=== PATIENT | male | born 1990 | race Caucasian/White ===

== ENCOUNTER 2016-09-08 16:49 | Emergency (ER) | payer SELFPAY ==
[2016-09-08 17:02] VITALS: BP 150/68
--- NOTE | 2016-09-08 17:17 | UC ---
Back Pain HPI - HPI Summary HPI Summary: LOWER BACK PAIN X 3 DAYS , NO KNOWN INJURY , NO RADIATION OF PAIN , INCREASE PAIN WITH MOVEMENT, NO NUMBNESS ON LOWER LEG +RASH RIGHT HAND X 1 DAY , ITCHY , BURNING - History of Current Complaint Chief Complaint: UCSkin Stated Complaint: SKIN ISSUE RT HAND/LOW BACK PAIN Time Seen by Provider: 09/08/16 17:04 Hx Obtained From: Patient Onset/Duration: Gradual Onset, Lasting Days - 3, Still Present Timing: Constant Severity Initially: Moderate Severity Currently: Moderate Back Pain: Is Discrete @ - LEFT LOWER BACK Character: Aching Aggravating: Movement, Lifting, Bending, Walking Associated Signs And Symptoms: Negative: Swelling, Redness, Bruising, Fever, Weakness, Numbness, Tingling, Abdominal Pain, Flank Pain, Bladder Incontinence, Bowel Incontinence, Weight Loss, Pain with Weight Bearing - Allergies/Home Medications Allergies/Adverse Reactions: Allergies Allergy/AdvReac Type Severity Reaction Status Date / Time No Known Allergies Allergy Verified 09/08/16 17:02 PMH/Surg Hx/FS Hx/Imm Hx Psychological History Of: Reports: Depression - NO MEDS - Surgical History Surgical History: Yes Surgery Procedure, Year, and Place: Left [place]le [place] [facility] [place]GUINAL HERNIA REPAIR. EAR TUBES Other Surgical History: left ankle surgery - Family History Known Family History: Positive: Cardiac Disease - mother Negative: Hypertension, Diabetes - Social History Alcohol Use: Rare Substance Use Type: None Smoking Status (MU): Light Every Day Tobacco Smoker Type: Cigarettes Amount Used/How Often: 4 cigarettes daily Length of Time of Smoking/Using Tobacco: 8 Years Have You Smoked in the Last Year: Yes When Did the Patient Quit Smoking/Using Tobacco: 06/13/2014 Household Exposure Type: Cigarettes - Immunization History Most Recent Influenza Vaccination: Not the Season Review of Systems Constitutional: Negative Skin: Rash Eyes: Negative ENT: Negative Respiratory: Negative All Other Systems Reviewed And Are Negative: Yes Physical Exam Triage Information Reviewed: Yes Appearance: Well-Appearing, No Pain Distress, Obese Vital Signs: Initial Vital Signs Temp 98.4 F 09/08/16 16:55 Pulse 78 09/08/16 16:55 Resp 16 09/08/16 16:55 BP 150/68 09/08/16 16:55 Pulse Ox 99 09/08/16 16:55 Eye Exam: Normal Eyes: Positive: Conjunctiva Clear ENT: Positive: Normal ENT inspection, Hearing grossly normal, Pharynx normal Neck exam: Normal Neck: Positive: Supple, Nontender, No Lymphadenopathy Respiratory: Positive: Chest non-tender, Lungs clear, Normal breath sounds, No respiratory distress Cardiovascular: Positive: RRR, No Murmur, Pulses Normal Abdominal Exam: Normal Musculoskeletal: Positive: Other: - LEFT LOWER BACK : NO SWELLING, NO ERYTHEM , MILD TENDERNESS, PAIN WITH FLEXION AND EXTENSION Skin: Positive: rashes - MACULAR RASH RIGHT HAND , + ERYTHEMA, TENDERNESS, Back Pain Course/Dx - Differential Dx/Diagnosis Provider Diagnoses: CONTACT DERMATITIS RIGHT HAND. LOWER BACK STRAIN Discharge - Discharge Plan Condition: Stable Disposition: HOME Prescriptions: Cyclobenzaprine TAB* [Flexeril 10 MG TAB*] 10 mg PO BID #20 tab Naproxen [Naproxen 500 MG TABS] 500 mg PO BID #20 tab Triamcinolone 0.1% CREAM (NF) [Kenalog 0.1% Cream (NF)] 1 applic .SEE ORDER BID #30 gm Patient Education Materials: Contact Dermatitis (ED), Low Back Strain (ED) Referrals: Shukri Sandoval MD [Primary Care Provider] - 7 Days
== END 2016-09-08 17:33 | disposition home or self-care (01) ==
LOC: UCCORT 16:49
DX: S39.012A Strain of muscle, fascia and tendon of lower back, initial encounter (principal); X58.XXXA Exposure to other specified factors, initial encounter; Y93.9 Activity, unspecified; Y92.9 Unspecified place or not applicable; L25.9 Unspecified contact dermatitis, unspecified cause; F32.9 Major depressive disorder, single episode, unspecified; E66.9 Obesity, unspecified; Z87.891 Personal history of nicotine dependence
CPT/HCPCS: 99212; G0463

== ENCOUNTER 2016-09-17 15:36 | Emergency (ER) | payer SELFPAY ==
--- NOTE | 2016-09-17 16:20 | UC ---
Back Pain HPI - HPI Summary HPI Summary: The patient comes in today for: 1. Lower left back pain: Onset: 2 weeks. Palliative/provocative: Nothing makes the pain better or worse except driving makes it worse. Quality: Throbbing. Region: Lower left back. Severity: 7/10 Time: Constant. Associated symptoms: Injury: None. He got up from bed and the "back was out." Bowel/bladder dysfunction: None. Numbness/weakness: "left leg keeps trying to give out." Fevers: None known. But, he states that the back feels "hot." Unexpected weight loss: None. Previous treatment: He took a 500 mg pill of Naproxen anid it barely affected it. Previous evaluation: None. Radiation of pain: Down the left leg. No previous problems. *. - History of Current Complaint Chief Complaint: UCBackPain Stated Complaint: SEVERE BACK PAIN Time Seen by Provider: 09/17/16 16:15 Hx Obtained From: Patient - Allergies/Home Medications Allergies/Adverse Reactions: Allergies Allergy/AdvReac Type Severity Reaction Status Date / Time No Known Allergies Allergy Verified 09/17/16 16:02 PMH/Surg Hx/FS Hx/Imm Hx Previously Healthy: No Endocrine History Of: Denies: Diabetes, Thyroid Disease, Hyperthyroidism, Hypothyroidism, Dyslipidemia Cardiovascular History Of: Denies: Cardiac Disorders, Hypertension, Pacemaker/ICD, Myocardial Infarction , Congestive Heart Failure, Atrial Fibrillation, Deep Vein Thrombosis, Bleeding Disorders Respiratory History Of: Denies: COPD, Asthma, Bronchitis, Pneumonia, Pulmonary Embolism GI/ History Of: Reports: Gastroesophageal Reflux - He does not take anything for it at this time. Denies: Ulcer, Gastrointestinal Bleed, Gall Bladder Disease, Kidney Stones, Diverticulitis, Renal Disease, Urosepsis Neurological History Of: Denies: TIA, CVA, Dementia, Seizures, Migraine Psychological History Of: Reports: Anxiety, Depression - NO MEDS Denies: Bipolar Disorder, Schizophrenia, Post Traumatic Stress Disorder Cancer History Of: Reports: Cervical Cancer Denies: Lung Cancer, Colorectal Cancer, Breast Cancer, Prostate Cancer Other History Of: Negative For: HIV, Hepatitis B, Hepatitis C, Anticoagulant Therapy - Surgical History Surgical History: Yes Surgery Procedure, Year, and Place: Left Ankle Screws (Osteoarthritis), 2015, [facility] – [place]; INGUINAL HERNIA REPAIR. EAR TUBES Other Surgical History: left ankle surgery - Family History Known Family History: Positive: Cardiac Disease - mother Negative: Hypertension, Diabetes - Social History Alcohol Use: Rare Substance Use Type: None Smoking Status (MU): Light Every Day Tobacco Smoker Type: Cigarettes Amount Used/How Often: 4 cigarettes daily Length of Time of Smoking/Using Tobacco: 8 Years Have You Smoked in the Last Year: Yes When Did the Patient Quit Smoking/Using Tobacco: 06/13/2014 Household Exposure Type: Cigarettes - Immunization History Most Recent Influenza Vaccination: Not the Season Review of Systems Constitutional: Negative Skin: Negative Eyes: Negative ENT: Negative Respiratory: Negative Cardiovascular: Negative Gastrointestinal: Negative All Other Systems Reviewed And Are Negative: Yes Physical Exam Triage Information Reviewed: Yes Appearance: Well-Appearing, No Pain Distress - But, he has slow movement (but he had a heavy body habitus) and some guarding. He will push himself out of a chair., Well-Nourished Vital Signs: Initial Vital Signs Temp 98.3 F 09/17/16 15:58 Pulse 63 09/17/16 15:58 Resp 16 09/17/16 15:58 BP 111/57 09/17/16 15:58 Pulse Ox 93 09/17/16 15:58 Vital Signs Reviewed: Yes Eyes: Positive: Conjunctiva Clear. Negative: Discharge ENT: Positive: Hearing grossly normal. Negative: Pharyngeal erythema, Nasal congestion, Nasal drainage, TM bulging, TM dull, TM red, Tonsillar swelling, Tonsillar exudate Dental: Negative: Gross Decay/Caries @, Dental Fracture @ Neck: Positive: Supple, Nontender, No Lymphadenopathy. Negative: Nuchal Rigidity Respiratory: Positive: Lungs clear, No respiratory distress, No accessory muscle use. Negative: Crackles, Wheezing Cardiovascular: Positive: RRR, No Murmur Abdomen Description: Positive: Nontender, No Organomegaly, Soft, Other: - Exam hindered by. Negative: Distended, Guarding Bowel Sounds: Positive: Present Musculoskeletal: Positive: Strength Intact, No Edema, Other: - He has some slight scoliosis of the back. There is tenderness to palpation of the left lower paraspinous musculature--none on the right. No CVA tenderness. He has good forward flexion, and limited right lateral flexion--better on the left lateral flexion. He has SLR bilaterally, but he has almost full extension. DTR are 1+/2 for the patella. Neurological: Positive: Alert, Muscle Tone Normal Psychological: Positive: Age Appropriate Behavior, Consolable Skin: Negative: rashes, breakdown Re-Evaluation - Re-Evaluation First Eval Change: Improved - The patient feels better with the ketorolac injection. His physical exam shows easier and greater ROM movement. Back Pain Course/Dx - Differential Dx/Diagnosis Differential Diagnosis/HQI/PQRI: Strain, Sprain Provider Diagnoses: Lower left back strain. Discharge - Discharge Plan Condition: Stable Disposition: HOME Patient Education Materials: Low Back Strain (ED) Referrals: Non Staff,Doctor [Primary Care Provider] - 1 Week (Please see your primary care provider in about a week to see how well you are doing. If you don't have a primary care provider, please use the list provided. IF you get worse between now and then, you can come back to see us. )
[2016-09-17] MEDS ORDERED: Ketorolac INJ* 60 MG/2 ML VIAL IM ONE (16:39)
--- NOTE | 2016-09-17 17:23 | RAD ---
INDICATION: Low back pain. COMPARISON: Comparison is made with a prior x-ray study of the lumbar spine from October 02, 2008. TECHNIQUE: 5 views of the lumbar spine were obtained including lateral, oblique, AP and a coned-down lateral view of the lumbar sacral junction. FINDINGS: The vertebra are in normal alignment. No fracture is seen. There is mild to moderate degenerative disc disease at the L1-L2, L2-L3 and L3-L4 levels levels demonstrating progression from the prior study. IMPRESSION: MILD TO MODERATE DEGENERATIVE DISC DISEASE.
[2016-09-17 18:14] VITALS: BP 114/63
== END 2016-09-17 18:15 | disposition home or self-care (01) ==
LOC: UCCORT 15:36
DX: S39.012A Strain of muscle, fascia and tendon of lower back, initial encounter (principal); X58.XXXA Exposure to other specified factors, initial encounter; Y93.9 Activity, unspecified; Y92.9 Unspecified place or not applicable; M51.36 Other intervertebral disc degeneration, lumbar region; K21.9 Gastro-esophageal reflux disease without esophagitis; F17.210 Nicotine dependence, cigarettes, uncomplicated
CPT/HCPCS: 72110; 96372; 99212; G0463; J1885

== ENCOUNTER 2016-09-21 08:50 | Emergency (ER) | payer SELFPAY ==
--- NOTE | 2016-09-21 09:29 | UC ---
Back Pain HPI - HPI Summary HPI Summary: He states his back pain is still present but improved. He states he is here for work note to return to work. no new symptoms like worsening numbness or saddle anesthesia. - History of Current Complaint Stated Complaint: RE CHECK BACK PAIN Time Seen by Provider: 09/21/16 09:18 Hx Obtained From: Patient Onset/Duration: Gradual Onset Timing: Constant Severity Initially: Severe Severity Currently: Moderate Back Pain: Is Diffuse Character: Aching Aggravating: Movement Alleviating: Rest, Position Associated Signs And Symptoms: Negative: Fever, Bladder Incontinence, Bowel Incontinence - Allergies/Home Medications Allergies/Adverse Reactions: Allergies Allergy/AdvReac Type Severity Reaction Status Date / Time No Known Allergies Allergy Verified 09/17/16 16:02 PMH/Surg Hx/FS Hx/Imm Hx Endocrine History Of: Denies: Diabetes, Thyroid Disease, Hyperthyroidism, Hypothyroidism, Dyslipidemia Cardiovascular History Of: Denies: Cardiac Disorders, Hypertension, Pacemaker/ICD, Myocardial Infarction , Congestive Heart Failure, Atrial Fibrillation, Deep Vein Thrombosis, Bleeding Disorders Respiratory History Of: Denies: COPD, Asthma, Bronchitis, Pneumonia, Pulmonary Embolism GI/ History Of: Reports: Gastroesophageal Reflux - He does not take anything for it at this time. Denies: Ulcer, Gastrointestinal Bleed, Gall Bladder Disease, Kidney Stones, Diverticulitis, Renal Disease, Urosepsis Neurological History Of: Denies: TIA, CVA, Dementia, Seizures, Migraine Psychological History Of: Reports: Anxiety, Depression - NO MEDS Denies: Bipolar Disorder, Schizophrenia, Post Traumatic Stress Disorder Cancer History Of: Reports: Cervical Cancer Denies: Lung Cancer, Colorectal Cancer, Breast Cancer, Prostate Cancer Other History Of: Negative For: HIV, Hepatitis B, Hepatitis C, Anticoagulant Therapy - Surgical History Surgical History: Yes Surgery Procedure, Year, and Place: Left Ankle Screws (Osteoarthritis), 2015, [facility] – [place]; INGUINAL HERNIA REPAIR. EAR TUBES Other Surgical History: left ankle surgery - Family History Known Family History: Positive: Cardiac Disease - mother Negative: Hypertension, Diabetes - Social History Alcohol Use: Rare Substance Use Type: None Smoking Status (MU): Light Every Day Tobacco Smoker Type: Cigarettes Amount Used/How Often: 4 cigarettes daily Length of Time of Smoking/Using Tobacco: 8 Years Have You Smoked in the Last Year: Yes When Did the Patient Quit Smoking/Using Tobacco: 06/13/2014 Household Exposure Type: Cigarettes - Immunization History Most Recent Influenza Vaccination: Not the 2014/2015 Season Review of Systems All Other Systems Reviewed And Are Negative: Yes Physical Exam Triage Information Reviewed: Yes Appearance: Well-Appearing, Obese Vital Signs Reviewed: Yes Eye Exam: Normal Eyes: Positive: Conjunctiva Clear. Negative: Conjunctiva Inflamed ENT Exam: Normal Dental Exam: Normal Neck exam: Normal Respiratory Exam: Normal Cardiovascular Exam: Normal Abdomen Description: Positive: Nontender, Soft Musculoskeletal Exam: Other - arsh straight leg raise produces lower back pain without parasthesias. He walks into the room without major limp. Musculoskeletal: Positive: Strength Intact Neurological Exam: Normal Neurological: Positive: Alert, Muscle Tone Normal. Negative: Fatigued Psychological Exam: Normal Skin Exam: Normal Skin: Negative: rashes Back Pain Course/Dx - Differential Dx/Diagnosis Provider Diagnoses: work note. low back pain chronic. Discharge - Discharge Plan Condition: Good Disposition: HOME Patient Education Materials: Back Pain (ED), Lower Back Exercises (ED) Forms: *Work Release Referrals: Non Staff,Doctor [Primary Care Provider] -
[2016-09-21 09:40] VITALS: BP 118/69
== END 2016-09-21 09:41 | disposition home or self-care (01) ==
LOC: UCCORT 08:50
DX: M54.5 Low back pain (principal); K21.9 Gastro-esophageal reflux disease without esophagitis; F41.8 Other specified anxiety disorders; E66.9 Obesity, unspecified; Z87.891 Personal history of nicotine dependence
CPT/HCPCS: 99211; G0463

== ENCOUNTER 2016-09-25 13:58 | Emergency (ER) | payer SELFPAY ==
[2016-09-25 15:25] VITALS: BP 118/59
[2016-09-25] MEDS ORDERED: Ketorolac INJ* 30 MG/ML 1 ML VIAL IM ONE (15:37)
--- NOTE | 2016-09-25 15:43 | UC ---
Back Pain HPI - HPI Summary HPI Summary: patient is an obese 26 year old male who has been suffering with back pain for th elast 2 weeks, he has come to 4 times for the nikos e complaint, has been taking anti inflammatories with good relief, but has run out. he is slightly limited in flexion of the lumbar spine. has a job where he is on his feet all day and his back on the left side gets very sore and gets shooting pains down the leg. - History of Current Complaint Chief Complaint: UCBackPain Stated Complaint: BACK PAIN Time Seen by Provider: 09/25/16 15:27 Hx Obtained From: Patient Onset/Duration: Sudden Onset, Lasting Weeks Timing: Lasting Weeks Severity Initially: Moderate Severity Currently: Moderate Back Pain: Is Discrete @ - left Si joint Character: Dull, Aching, Spasmodic Aggravating: Movement, Walking Alleviating: Rest - Allergies/Home Medications Allergies/Adverse Reactions: Allergies Allergy/AdvReac Type Severity Reaction Status Date / Time No Known Allergies Allergy Verified 09/25/16 15:24 PMH/Surg Hx/FS Hx/Imm Hx Previously Healthy: Yes Endocrine History Of: Denies: Diabetes, Thyroid Disease, Hyperthyroidism, Hypothyroidism, Dyslipidemia Cardiovascular History Of: Denies: Cardiac Disorders, Hypertension, Pacemaker/ICD, Myocardial Infarction , Congestive Heart Failure, Atrial Fibrillation, Deep Vein Thrombosis, Bleeding Disorders Respiratory History Of: Denies: COPD, Asthma, Bronchitis, Pneumonia, Pulmonary Embolism GI/ History Of: Reports: Gastroesophageal Reflux - He does not take anything for it at this time. Denies: Ulcer, Gastrointestinal Bleed, Gall Bladder Disease, Kidney Stones, Diverticulitis, Renal Disease, Urosepsis Neurological History Of: Denies: TIA, CVA, Dementia, Seizures, Migraine Psychological History Of: Reports: Anxiety, Depression - NO MEDS Denies: Bipolar Disorder, Schizophrenia, Post Traumatic Stress Disorder Cancer History Of: Reports: Cervical Cancer Denies: Lung Cancer, Colorectal Cancer, Breast Cancer, Prostate Cancer Other History Of: Negative For: HIV, Hepatitis B, Hepatitis C, Anticoagulant Therapy - Surgical History Surgical History: Yes Surgery Procedure, Year, and Place: Left Ankle Screws (Osteoarthritis), 2015, [facility] – [place]; INGUINAL HERNIA REPAIR. EAR TUBES Other Surgical History: left ankle surgery - Family History Known Family History: Positive: Cardiac Disease - mother Negative: Hypertension, Diabetes - Social History Alcohol Use: Occasionally Substance Use Type: None Smoking Status (MU): Light Every Day Tobacco Smoker Type: Cigarettes Amount Used/How Often: 2-3 CIGS PER DAY Length of Time of Smoking/Using Tobacco: 8 Years Have You Smoked in the Last Year: Yes When Did the Patient Quit Smoking/Using Tobacco: 06/13/2014 Household Exposure Type: Cigarettes - Immunization History Most Recent Influenza Vaccination: none Review of Systems Constitutional: Negative Skin: Negative Eyes: Negative ENT: Negative Respiratory: Negative Cardiovascular: Negative Gastrointestinal: Negative Genitourinary: Negative Motor: Negative Neurovascular: Negative Musculoskeletal: Arthralgia, Decreased ROM, Myalgia Neurological: Negative Psychological: Negative All Other Systems Reviewed And Are Negative: Yes Physical Exam Triage Information Reviewed: Yes Appearance: Ill-Appearing, Pain Distress, Obese Vital Signs: Initial Vital Signs Temp 97.9 F 09/25/16 15:18 Pulse 94 09/25/16 15:18 Resp 18 09/25/16 15:18 BP 118/59 09/25/16 15:18 Pulse Ox 99 09/25/16 15:18 Vital Signs Reviewed: Yes Eye Exam: Normal Eyes: Positive: Conjunctiva Clear ENT Exam: Normal ENT: Positive: Hearing grossly normal, Pharynx normal, TMs normal Dental Exam: Normal Neck exam: Normal Neck: Positive: Supple, Nontender, No Lymphadenopathy Respiratory Exam: Normal Respiratory: Positive: Chest non-tender, Lungs clear, Normal breath sounds Cardiovascular Exam: Normal Cardiovascular: Positive: RRR, No Murmur, Pulses Normal Abdominal Exam: Normal Abdomen Description: Positive: Nontender, No Organomegaly, Soft Bowel Sounds: Positive: Present Musculoskeletal: Positive: Strength Intact, No Edema, ROM Limited @ - left lateral flexion Neurological Exam: Normal Neurological: Positive: Alert, Muscle Tone Normal Psychological Exam: Normal Skin Exam: Normal Back Pain Course/Dx - Course Course Of Treatment: hx obtained, exam performed, meds reviewed, ROM limited in left lat FLX cannot reprodue the shooting pain. no spinal tenderness with palpation. all pain is centere over the left SI joint and QL. - Differential Dx/Diagnosis Differential Diagnosis/HQI/PQRI: Arthritis, Herniated Disc, Strain, Sprain Provider Diagnoses: SI joint dysfunction. low back pain. morbid obesity Discharge - Discharge Plan Condition: Stable Disposition: HOME Prescriptions: Naproxen [Naproxen 500 MG TABS] 500 mg PO BID #60 tab Patient Education Materials: Sacroiliitis (ED), Lower Back Exercises (ED) Forms: *Work Release Referrals: Non Staff,Doctor [Primary Care Provider] - Chevy Penny [Physical Therapist] - Additional Instructions: 1. take the naproxen twice a day 2. start the stretching and low back exercises to relieve the cause of the pain 3. I have included a referral for PT that I believe is necessary for full healing of your back
== END 2016-09-25 16:18 | disposition home or self-care (01) ==
LOC: UCCORT 13:58
DX: M53.3 Sacrococcygeal disorders, not elsewhere classified (principal); M54.5 Low back pain; E66.01 Morbid (severe) obesity due to excess calories; K21.9 Gastro-esophageal reflux disease without esophagitis; F17.210 Nicotine dependence, cigarettes, uncomplicated
CPT/HCPCS: 96372; 99212; G0463; J1885

== ENCOUNTER 2016-10-11 15:43 | Emergency (ER) | payer SELFPAY ==
[2016-10-11 16:00] VITALS: BP 140/71
--- NOTE | 2016-10-11 16:51 | RAD ---
INDICATION: Hemoptysis. COMPARISON: There are no prior studies available for comparison. TECHNIQUE: Dual-energy PA and lateral views of the chest were obtained. FINDINGS: The heart is within normal limits in size. Mediastinal and hilar contours appear within normal limits. The lungs are clear. No pleural effusion is present. IMPRESSION: NO EVIDENCE FOR ACTIVE CARDIOPULMONARY DISEASE.
--- NOTE | 2016-10-11 17:29 | UC ---
Throat Pain/[place] HPI - HPI Summary HPI Summary: SORE THROAT AND COUGH SINCE . FEVER 100F. THIS MORNING CONCERNED THAT THERE MAY HAVE BEEN SOME BLOOD IN SPUTUM WITH COUGHING. - History of Current Complaint Chief Complaint: UCGeneralIllness Stated Complaint: SORE THROAT,COUGH Time Seen by Provider: 10/11/16 15:59 Hx Obtained From: Patient Onset/Duration: Gradual Onset, Lasting Days, Still Present, Worse Since - THIS MORNING Severity: Mild Pain Intensity: 0 Pain Scale Used: 0-10 Numeric Cough: Productive Associated Signs & Symptoms: Positive: Hoarseness, Fever - Epiglottits Risk Factors Epiglottis Risk Factors: Negative - Allergies/Home Medications Allergies/Adverse Reactions: Allergies Allergy/AdvReac Type Severity Reaction Status Date / Time No Known Allergies Allergy Verified 10/11/16 16:00 Home Medications: Home Medications Cyclobenzaprine TAB* [Flexeril 10 MG TAB*] 10 mg PO DAILY 10/11/16 [History Confirmed 10/11/16] PMH/Surg Hx/FS Hx/Imm Hx Previously Healthy: Yes Endocrine History Of: Denies: Diabetes, Thyroid Disease, Hyperthyroidism, Hypothyroidism, Dyslipidemia Cardiovascular History Of: Denies: Cardiac Disorders, Hypertension, Pacemaker/ICD, Myocardial Infarction , Congestive Heart Failure, Atrial Fibrillation, Deep Vein Thrombosis, Bleeding Disorders Respiratory History Of: Denies: COPD, Asthma, Bronchitis, Pneumonia, Pulmonary Embolism GI/ History Of: Reports: Gastroesophageal Reflux - He does not take anything for it at this time. Denies: Ulcer, Gastrointestinal Bleed, Gall Bladder Disease, Kidney Stones, Diverticulitis, Renal Disease, Urosepsis Neurological History Of: Denies: TIA, CVA, Dementia, Seizures, Migraine Psychological History Of: Reports: Anxiety, Depression - NO MEDS Denies: Bipolar Disorder, Schizophrenia, Post Traumatic Stress Disorder Cancer History Of: Reports: Cervical Cancer Denies: Lung Cancer, Colorectal Cancer, Breast Cancer, Prostate Cancer Other History Of: Negative For: HIV, Hepatitis B, Hepatitis C, Anticoagulant Therapy - Surgical History Surgical History: Yes Surgery Procedure, Year, and Place: Left Ankle Screws (Osteoarthritis), 2015, [facility] – [place]; INGUINAL HERNIA REPAIR. EAR TUBES Other Surgical History: left ankle surgery - Family History Known Family History: Positive: Cardiac Disease - mother Negative: Hypertension, Diabetes - Social History Occupation: Employed Full-time Lives: With Family Alcohol Use: Rare Substance Use Type: None Smoking Status (MU): Light Every Day Tobacco Smoker Type: Cigarettes Amount Used/How Often: 2-3 CIGS PER DAY Length of Time of Smoking/Using Tobacco: 8 Years Have You Smoked in the Last Year: Yes When Did the Patient Quit Smoking/Using Tobacco: 06/13/2014 Household Exposure Type: Cigarettes Cessation Counseling: Patient Advised to Stop - Immunization History Most Recent Influenza Vaccination: none Review of Systems Constitutional: Fever Skin: Negative Eyes: Negative ENT: Sore Throat Respiratory: Cough Cardiovascular: Negative Gastrointestinal: Negative Genitourinary: Negative Motor: Negative Neurovascular: Negative Musculoskeletal: Negative Neurological: Negative Psychological: Negative All Other Systems Reviewed And Are Negative: Yes Physical Exam Triage Information Reviewed: Yes Appearance: Well-Appearing, No Pain Distress, Well-Nourished, Obese Vital Signs: Initial Vital Signs Temp 100.3 F 10/11/16 15:46 Pulse 104 10/11/16 15:46 Resp 20 10/11/16 15:46 BP 140/71 10/11/16 15:46 Pulse Ox 98 10/11/16 15:46 Vital Signs Reviewed: Yes Eye Exam: Normal ENT Exam: Normal ENT: Positive: Normal ENT inspection, Hearing grossly normal, Pharyngeal erythema, TMs normal Dental Exam: Normal Neck exam: Normal Neck: Positive: Supple, Nontender, No Lymphadenopathy Respiratory Exam: Normal Respiratory: Positive: Chest non-tender, Lungs clear, Normal breath sounds, No respiratory distress, No accessory muscle use Cardiovascular Exam: Normal Cardiovascular: Positive: RRR, No Murmur, Pulses Normal, Brisk Capillary Refill Abdominal Exam: Normal Musculoskeletal Exam: Normal Musculoskeletal: Positive: Strength Intact, ROM Intact Neurological Exam: Normal Psychological Exam: Normal Skin Exam: Normal Throat Pain/Nasal Course/Dx - Differential Dx/Diagnosis Differential Diagnosis/HQI/PQRI: Otitis Media, Pharyngitis, Sinusitis, Tonsillitis, URI Provider Diagnoses: UPPER RESPIRATORY INFECTION Discharge - Discharge Plan Condition: Stable Disposition: HOME Prescriptions: Benzonatate CAP* [Tessalon 100 MG CAP*] 100 mg PO TID PRN #15 cap PRN Reason: Cough Patient Education Materials: Pharyngitis (ED), Upper Respiratory Infection (ED) Referrals: [facility] [place] PHYSICIAN REFERRAL [Outside] Non Staff,Doctor [Primary Care Provider] -
== END 2016-10-11 17:23 | disposition home or self-care (01) ==
LOC: UCCORT 15:43
DX: J06.9 Acute upper respiratory infection, unspecified (principal); K21.9 Gastro-esophageal reflux disease without esophagitis; F41.8 Other specified anxiety disorders; E66.9 Obesity, unspecified; F17.210 Nicotine dependence, cigarettes, uncomplicated
CPT/HCPCS: 71020; 87651; 99212; G0463

== ENCOUNTER 2018-07-05 12:45 | Emergency (ER) | payer SELFPAY ==
[2018-07-05 13:23] VITALS: BP 143/83
--- NOTE | 2018-07-05 14:07 | UC ---
Back Pain HPI - HPI Summary HPI Summary: Ptc/o left knee and low back pain . Pt reports that on 06/20/18 pt slipped on ice and fell on buttocks and low back. Pt reports that righ knee went out in fron to him and left knee "got all twisted up". Pt was seen at [facility] and had Xray of left knee hip and pelvis. Pt was given Naproxen RX and wa referred to PT, and PCP for follow up and treatment. Pt did not not do as recommended. - History of Current Complaint Chief Complaint: UCLowerExtremity Stated Complaint: BACK/LEFT LEG PAIN Hx Obtained From: Patient Onset/Duration: Sudden Onset, Lasting Weeks, Still Present Timing: Constant Severity Initially: Severe Severity Currently: Severe Pain Intensity: 10 Back Pain: Is Discrete @ - left knee and low back Character: Dull, Aching, Spasmodic, Stiffness Aggravating Factor(s): Movement, Lifting, Bending, Walking Alleviating Factor(s): Rest, Position Associated Signs And Symptoms: Positive: Negative - Risk Factors AAA Risk Factors: Negative TAD Risk Factors: Negative Cauda Equina Risk Factors: Negative Epidural Abscess Risk Factors: Negative - Allergies/Home Medications Allergies/Adverse Reactions: Allergies Allergy/AdvReac Type Severity Reaction Status Date / Time No Known Allergies Allergy Verified 07/05/18 13:09 Home Medications: Home Medications Naproxen Sodium [Aleve] 440 mg PO ONCE PRN 07/05/18 [History Confirmed 07/05/18] PMH/Surg Hx/FS Hx/Imm Hx Previously Healthy: Yes Other History Of: Negative For: HIV, Hepatitis B, Hepatitis C, Anticoagulant Therapy - Surgical History Surgical History: Yes Surgery Procedure, Year, and Place: Left Ankle Screws (Osteoarthritis), 2015, [facility] [place]; INGUINAL HERNIA REPAIR. EAR TUBES Other Surgical History: left ankle surgery - Family History Known Family History: Positive: Cardiac Disease - mother Negative: Hypertension, Diabetes - Social History Occupation: Employed Full-time Lives: With Family Alcohol Use: Rare Substance Use Type: None Smoking Status (MU): Light Every Day Tobacco Smoker Type: Cigarettes Amount Used/How Often: 2-3 CIGS PER DAY Length of Time of Smoking/Using Tobacco: 8 Years Have You Smoked in the Last Year: No When Did the Patient Quit Smoking/Using Tobacco: 06/13/2014 Household Exposure Type: Cigarettes - Immunization History Most Recent Influenza Vaccination: none Review of Systems All Other Systems Reviewed And Are Negative: Yes Constitutional: Positive: Negative Skin: Positive: Negative Eyes: Positive: Negative ENT: Positive: Negative Respiratory: Positive: Negative Cardiovascular: Positive: Negative Gastrointestinal: Positive: Negative Genitourinary: Positive: Negative Motor: Positive: Decreased ROM - low back and left leg and hip Neurovascular: Positive: Negative Musculoskeletal: Positive: Arthralgia, Decreased ROM, Myalgia Neurological: Positive: Negative Psychological: Positive: Negative Is Patient Immunocompromised?: No Physical Exam Triage Information Reviewed: Yes Appearance: Pain Distress, Obese Vital Signs: Initial Vital Signs Temp 99.9 F 07/05/18 13:11 Pulse 107 07/05/18 13:11 Resp 24 07/05/18 13:11 BP 143/83 07/05/18 13:11 Pulse Ox 96 07/05/18 13:11 Vital Signs Reviewed: Yes Eye Exam: Normal ENT Exam: Normal ENT: Positive: Hearing grossly normal Dental Exam: Normal Neck exam: Normal Respiratory: Positive: No respiratory distress Musculoskeletal: Positive: ROM Limited @ - low back and pain with movement. Neurological Exam: Normal Psychological Exam: Normal Skin Exam: Normal Back Pain Course/Dx - Course Course Of Treatment: Pt stated that he drove himself to clinic but stated that is was difficult to drive himself. I discussed my concern of his driving and the risk he may pose a risk to himself and others due to his decreased ROM and ability to move his lower extremities. - Differential Dx/Diagnosis Differential Diagnosis/HQI/PQRI: Fracture, Strain, Sprain Provider Diagnosis: Low back pain at multiple sites, Left knee pain Discharge - Sign-Out/Discharge Documenting (check all that apply): Patient Departure All imaging exams completed and their final reports reviewed: No Studies - Discharge Plan Condition: Stable Disposition: HOME Prescriptions: Cyclobenzaprine TAB* [Flexeril 10 MG TAB*] 10 mg PO Q8H PRN #15 tab PRN Reason: Pain Patient Education Materials: Knee Pain (ED), Back Pain (ED), Lower Back Exercises (ED) Forms: *Work Release Referrals: [facility] [Outside] - As Soon As Possible Konrad Monsalve MD [Medical Doctor] - As Soon As Possible No Primary Care Phys,NOPCP [Primary Care Provider] - Additional Instructions: Please follow up with your PCP as soon as possible. additionally, we recommend that you follow up with an orthopedic provider as soon as possible. Additionally, we have recognized that you're driving ability may be impaired by your physical complaints of pain and decreased range of motion of your low back and lower extremities. It is recommended that you do not drive or operate any heavy machinery. - Billing Disposition and Condition Condition: STABLE Disposition: Home
[2018-07-05] MEDS ORDERED: Ibuprofen TAB* 400 MG PO ONE (14:33)
== END 2018-07-05 14:38 | disposition home or self-care (01) ==
LOC: UCCORT 12:45
DX: M54.5 Low back pain (principal); M25.562 Pain in left knee; F17.210 Nicotine dependence, cigarettes, uncomplicated
CPT/HCPCS: 99212; A9270-GY; G0463

== ENCOUNTER 2019-06-23 16:57 | Emergency (ER) | payer OTHER ==
[2019-06-23 18:10] VITALS: BP 128/61
--- NOTE | 2019-06-23 18:35 | UC ---
Back Pain HPI - HPI Summary HPI Summary: Patient is a 29yo male presenting with left sided lower back pain that " radiates down the whole leg" since 05/20/19 when patient states he fell down 5 stairs. Patient states he has had this similar pain for years but it has been worse since falling last month. States pain worse with standing for long periods of time and has had to call off work this week because of it. Notes pain resolves with rest. Denies numbness and tingling. Denies bowel and bladder incontinence. Denies difficulty ambulating. - History of Current Complaint Chief Complaint: UCBackPain Stated Complaint: LOW BACK PAIN Hx Obtained From: Patient Pain Intensity: 2 - Allergies/Home Medications Allergies/Adverse Reactions: Allergies Allergy/AdvReac Type Severity Reaction Status Date / Time No Known Allergies Allergy Verified 06/23/19 18:10 Home Medications: Home Medications NK [No Home Medications Reported] 06/23/19 [History Confirmed 06/23/19] PMH/Surg Hx/FS Hx/Imm Hx Other History Of: Negative For: HIV, Hepatitis B, Hepatitis C, Anticoagulant Therapy - Surgical History Surgical History: Yes Surgery Procedure, Year, and Place: Left Ankle Screws (Osteoarthritis), 2015, [facility] [place]; INGUINAL HERNIA REPAIR. EAR TUBES Other Surgical History: left ankle surgery - Family History Known Family History: Positive: Cardiac Disease - mother Negative: Hypertension, Diabetes - Social History Alcohol Use: Rare Substance Use Type: None Smoking Status (MU): Light Every Day Tobacco Smoker Type: Cigarettes Amount Used/How Often: 1/2 ppd Length of Time of Smoking/Using Tobacco: 8 Years Have You Smoked in the Last Year: No When Did the Patient Quit Smoking/Using Tobacco: 06/13/2014 Household Exposure Type: Cigarettes - Immunization History Most Recent Influenza Vaccination: none Review of Systems All Other Systems Reviewed And Are Negative: No Constitutional: Positive: Negative Skin: Positive: Negative Respiratory: Positive: Negative Cardiovascular: Positive: Negative Gastrointestinal: Positive: Negative Musculoskeletal: Positive: Arthralgia - lumbar back and left side lumbar pain. Negative: Edema Neurological: Negative: Paresthesia, Numbness Physical Exam - Summary Physical Exam Summary: Vital Signs Reviewed: Yes A+Ox3, no pain distress, obese Eyes: Conjunctiva Clear ENT: Hearing grossly normal neck: supple Respiratory: Positive: No respiratory distress, No accessory muscle use Cardiovascular: skin color reflect adequate perfusion Musculoskeletal Exam: [place] x 4 without difficulty, decreased ROM of lower back, + TTP of lumbar spine and left paraspinous muscles, no edema, no erythema or ecchymosis, no rash, sensation grossly intact, 2+ DP/PT pulses Neurological: Positive: Alert, ambulatory without difficulty Psychological: Positive: age appropriate behavior Skin: Positive: no rash, no ecchymosis Vital Signs: Initial Vital Signs Temp 98 F 06/23/19 18:05 Pulse 64 06/23/19 18:05 Resp 18 06/23/19 18:05 BP 128/61 06/23/19 18:05 Pulse Ox 100 06/23/19 18:05 Diagnostics - Radiology lumbarsacral Radiology Interpretation Completed By: ED Physician Summary of Radiographic Findings: DDD, neg fx Back Pain Course/Dx - Course Course Of Treatment: Discussed initial negative read of radiograph with patient and that he would be notified with any abnormalities found on final report. Instructed patient to continue with symptomatic treatment including rest, ice, heat, stretching, and otc analgesics. Instructed patient to follow up with both pcp and ortho for further evaluation of back pain. Patient voiced understanding and agreed with treatment plan. - Differential Dx/Diagnosis Differential Diagnosis/HQI/PQRI: Arthritis, Fracture, Herniated Disc, Strain, Sprain, Other - DDD Provider Diagnosis: DDD (degenerative disc disease), lumbar, Low back pain radiating to left leg Discharge ED - Sign-Out/Discharge Documenting (check all that apply): Patient Departure All imaging exams completed and their final reports reviewed: No - Discharge Plan Condition: Stable Disposition: HOME Patient Education Materials: Back Pain (ED), Lower Back Exercises (ED) Forms: *Work Release Referrals: Konrad Monsalve MD [Medical Doctor] - As Soon As Possible Additional Instructions: As discussed, your radiograph was reviewed by the provider that treated you tonight. It will be read by a radiologist tomorrow morning. If there is a finding other than that discussed with you today, you will receive a call from a care provider. Continue to rest, ice and/or heat, and perform lower back stretches to help alleviate pain. You may also take ibuprofen as directed for pain relief. It is recommended that you follow up with your primary care provider and the orthopedic referral listed below as soon as possible for further evaluation. - Billing Disposition and Condition Condition: STABLE Disposition: Home - Attestation Statements Provider Attestation: This patient was not seen by me. I was available for consult. Chart reviewed. LUL
--- NOTE | 2019-06-24 07:31 | UC ---
- Progress Note Progress Note: Reviewed report of lumbar spinal xray--no change from wet read of DDD. Course/Dx - Diagnoses Provider Diagnoses: DDD (degenerative disc disease), lumbar, Low back pain radiating to left leg Discharge ED - Sign-Out/Discharge Documenting (check all that apply): Post-Discharge Follow Up All imaging exams completed and their final reports reviewed: Yes - Discharge Plan Condition: Stable Disposition: HOME Patient Education Materials: Back Pain (ED), Lower Back Exercises (ED) Forms: *Work Release Referrals: Konrad Monsalve MD [Medical Doctor] - As Soon As Possible Additional Instructions: As discussed, your radiograph was reviewed by the provider that treated you tonight. It will be read by a radiologist tomorrow morning. If there is a finding other than that discussed with you today, you will receive a call from a care provider. Continue to rest, ice and/or heat, and perform lower back stretches to help alleviate pain. You may also take ibuprofen as directed for pain relief. It is recommended that you follow up with your primary care provider and the orthopedic referral listed below as soon as possible for further evaluation. - Billing Disposition and Condition Condition: STABLE Disposition: Home
== END 2019-06-23 19:28 | disposition home or self-care (01) ==
LOC: UCCORT 16:57
DX: M51.36 Other intervertebral disc degeneration, lumbar region (principal); M54.5 Low back pain; F17.210 Nicotine dependence, cigarettes, uncomplicated
CPT/HCPCS: 72110; 99211; G0463